=== PATIENT | female | born 1985 | race Caucasian/White ===

== ENCOUNTER → 2018-08-05 22:00 | Observation (INO) ==
[2018-08-05 19:24] LABS: Bilirubin,Urine Negative (Negative); Blood,Urine Negative (Negative); Clarity,Urine Clear (Clear); Color,Urine Yellow (Yellow); Glucose,Urine (UA) Normal (Normal); Ketones,Urine Negative (Negative); Leukocyte Esterase,Urine Trace (Negative); Nitrite,Urine Negative (Negative); PH,Urine 6.5 pH Units (5.0-8.0); Protein,Urine Trace mg/dL (Neg-Trace); Specific Gravity,Urine 1.023 (1.010-1.025); Urobilinogen,Urine Normal (Normal)
[2018-08-05 19:26] LABS: Bacteria,Urine Few per hpf (None-Few); Hyaline Casts,Urine Few per lpf (None-Few); RBC,Urine 15-30 per hpf (0-3); Squamous Epithelial Cell,Urine Many per lpf (None-Few)
[2018-08-05 19:34] LABS: Amphetamine Screen,Urine Negative ng/mL (Cutoff=1000); Barbiturate Screen,Urine Negative ng/mL (Cutoff=200); Benzodiazepines Screen,Urine Negative ng/mL (Cutoff=200); Cannabinoid Screen,Urine Negative ng/mL (Cutoff = 50); Cocaine Screen,Urine Negative ng/mL (Cutoff= 300); Opiate Screen,Urine Negative ng/mL (Cutoff=300); Phencyclidine Screen,Urine Negative ng/mL (Cutoff=25)
[2018-08-05 20:26] LABS: Basophils # 0.1 K/mcL (0.0-0.2); Basophils % 0.3 %; Eosinophils # 0.1 K/mcL (0.0-0.6); Eosinophils % 0.8 %; Hematocrit 39.3 % (35.3-44.9); Hemoglobin 13.4 g/dL (11.5-15.4); Immature Granulocytes % 1.4 % (0-4); Lymphocytes # 2.9 K/mcL (0.6-4.6); Lymphocytes % 17.6 %; Mean Corpuscular HGB Conc 34.1 g/dL (31.6-35.5); Mean Corpuscular Hemoglobin 27.5 pg (28.0-33.3); Mean Corpuscular Volume 80.5 fL (83.0-100.0); Mean Platelet Volume 11.8 fL (9.4-12.4); Monocytes # 1.2 K/mcL (0.0-1.3); Monocytes % 7.1 %; Neutrophils # 11.8 K/mcL (1.6-8.9); Platelet Count 165 K/mcL (140-400); Red Blood Count 4.88 M/mcL (3.82-4.97); Red Cell Distribution Width 13.9 % (11.5-14.5); Segmented Neutrophils % 72.8 %
--- NOTE | 2018-08-05 20:30 | OB/GYN History & Physical ---
Date of Encounter: 08/05/18 Time of Encounter: 19:46 Assessment and Plan (1) contractions Current visit: Yes Status: Acute 32yo at 35wks who presents with a weeks worth of contraction(s), concern for PTL 1. R/o PTL - UTD PNC with [facility] - reports contraction(s) for the past week, no VB/LOF - SVE: ft/th/hi, recheck in 2hrs unchanged - denies UTI symptoms, recent intercourse - discussed hydration, 6-8 bottles daily as these contraction(S) may be 2/2 dehydration - given 1L IVF bolus while in triage today 2. Hx of CD - patient with G1 pLTCS at term for NRFWB - discussed TOLAC with patient, desires this with [facility] but they do not do TOLACs - patient reported wanting to switch care here during 3rd TM but was unable to do so - desires TOLAC, will [place] [facility] [place] in [place] - first CS performed here, will need to review operative report prior to consent for TOLAC and possible 3. FWB - RNST for GA - S = D - good FM Dispo: CBC NERISSA, UA negative, s/p 1LIVF bolus with unchanged cervix. Given PTL precaution(S). Will need to retrieve operative report from medical records in prior EMR to confirm ability to successfully TOLAC. MD VALDEZ History of Present Illness Chief complaint: Contraction(s), concern for PTL HPI: Ms. العلي is a 32 year old female at 35wks GA who presents with concern for PTL. Prior hx of 1 CS for NRFWB at term. 1 SAB. UTD PNC with [facility]. Denies vaginal bleeding and LOF, reports active fetus. Uncomplicated otherwise. Denies si/sx of UTI. No recent intercourse. VSS, HDS, afebrile. Past Med Surg Social Fam HX - Past Medical History Additional medical history: heart murmor, enlarged heart Psychiatric history: no psych history - Past Surgical History Surgical History: Additional surgical history: tonsillectomy, right arm sx repair - Social History Smoking Status: Current every day smoker Alcohol use: none Drug use: none - Family History Father Living Status: Age at : 53 Cause of : [place] Hx Family Cardiac Disorders: Yes (Heart mumor, HTN, Enlarged Heart) Obstetrical History - Pregnancies : 3 Para: 1 Term: 1 Ab's: 1 Livin Medications and Allergies Cyclobenzaprine [Flexeril] 5 mg PO TID 08/05/18 [History] Ondansetron HCl [Zofran] 1 tab PO PRN PRN 08/05/18 [History] Formula Tablet 1 tab PO DAILY 08/05/18 [History] Tylenol 600 mg PO PRN PRN 08/05/18 [History] Allergy/AdvReac Type Severity Reaction Status Date / Time No Known Allergies Allergy Unverified 02/23/16 09:51 Exam - Constitutional Constitutional: well developed, well nourished, no acute distress - HEENT HEENT: Normocephaly - Lungs Respiratory exam: CTAB - Cardiovascular Cardiovascular exam: RRR - Abdomen Abdomen: Present: bowel sounds normal - Extremities Extremities exam: normal capillary refill, normal inspection - Vagina Vagina: Present: normal moisture - Uterus Uterus exam: Present: normal size (SVE: ft/th/hi) Results Result Diagrams: 08/05/18 20:12 Abnormal lab results Ur Leukocyte Esterase Trace (Negative) H 08/05/18 18:39 Urine Microscopic RBC 15-30 per hpf (0-3) H 08/05/18 18:39 Urine Microscopic WBC 5-15 per hpf (0-3) H 08/05/18 18:39 Ur Squamous Epith Cells Many per lpf (None-Few) H 08/05/18 18:39 Ur Culture Indicated? NO. (NO) A 08/05/18 18:39 All other labs normal. - VTE Reasons for not Prescribing Prophylaxis: Treatment not Indicated - Low risk for VTE
[~2018-08-05 22:00] MED LIST: Ringers Solution, Lactated 1,000 ML IVC ONE; Ringers Solution, Lactated 1,000 ML ONE
== END | disposition home or self-care (01) ==
LOC: 1NENULAB
PROVIDERS: ADMIT Registered Nurse; ATTEND Registered Nurse